=== PATIENT | female | born 1975 | race Caucasian/White ===

== ENCOUNTER → 2017-10-15 | Outpatient (REF) ==
[~2017-10-15] MED LIST: AMOXICILLIN875 MG PO; FLONASEALLERGY NS; LORYNA 3 MG-0.01 TAB PO; MAGNESIUM500 MG PO; NORCO 325 MG-101 TAB PO; PROBIOTICA100 Milli1 PO; SOMA 350MG350 MG/TAB PO; TEGRETOL 2200 MG/TA1 PO; ULTRAM 50MG TAB50 MG PO; VENTOLIN0.09 MG IH; VITAMIN B COMPL1 T16 PO; VITAMIN K2 PO; VITAMIND3 5000 PO
[2017-10-15 11:00] LABS: HIV 1/2 Antibodies Non-Reactive; HIV-1p24 Antigen Non-Reactive
[2017-10-16 01:01] LABS: HEPATITIS B SURFACE ANTIBODY <2.0 (()); HEPATITIS C VIRUS ANTIBODY Negative (())
== END ==
LOC: ZMSC 10:02
PROVIDERS: Obstetrics & Gynecology
DX: Z01.89 Encounter for other specified special examinations (principal)